=== PATIENT | male | born 1965 | race Caucasian/White ===

== ENCOUNTER 2023-06-13 10:27 | Emergency (ER) | payer BC, SELFPAY ==
--- NOTE | ~2023-06-13 | XR_ITS ---
EXAMINATION: XR chest 2V DATE: 06/13/2023 11:18 INDICATION: Cough. Left flank pain. TECHNIQUE: Frontal and lateral views of the chest were obtained. COMPARISON: None. FINDINGS: There is no pneumonia, pleural effusion, or pneumothorax. The heart size is normal. IMPRESSION: 1. No acute cardiopulmonary disease. Reviewed, dictated and finalized at location A. [employer] TRAINING REPRESENTATIVE
[2023-06-13 10:49] VITALS: BP 163/96; PULSE 102; RESP 18; TEMP 36.7; O2SAT 96
[2023-06-13] MEDS: ALBUTEROL SULFATE (*SP) AEROSOL 1 PUFF 2 PUFF INHALATION (11:38)
[2023-06-13] MEDS: ALBUTEROL SULFATE (*SP) INHALER 1 PUFF (11:38)
[2023-06-13 11:47] LABS: Basophils Absolute Auto 0.1 K/mm3 (0.0-0.1); Basophils Percent Auto 1.1 % (0.2-1.2); Eosinophils Absolute Auto 0.1 K/mm3 (0-0.3); Eosinophils Percent Auto 1.6 % (0-4.4); Hematocrit 49.6 % (42.0-52.0); Hemoglobin 16.5 g/dL (14.0-18.0); Immature Granulocyte Absolute 0.04 K/mm3 (0.00-0.031); Immature Granulocyte Percent A 0.5 % (0-0.5); Lymphocytes Absolute Auto 2.09 K/mm3 (0.9-3.2); Lymphocytes Percent Auto 25.8 % (18.3-44.2); Mean Corpuscular HGB Conc 33.3 g/dl (32-36); Mean Corpuscular Hemoglobin 29.9 pg (26-34); Mean Corpuscular Volume 89.9 fl (80-100); Mean Platelet Volume 10.6 fl (7.4-10.4); Monocytes Absolute Auto 0.7 K/mm3 (0.1-0.6); Monocytes Percent Auto 9.1 % (2.6-8.5); Neutrophils Percent Auto 61.9 % (45.5-73.1); Platelet Count Result 219 k/mm3 (150-375); Red Blood Count 5.52 M/mm3 (4.6-6.20); Red Cell Distribution Width 13.6 % (11.5-14.5); White Blood Count 8.1 K/mm3 (4.5-10.0)
[2023-06-13 11:58] LABS: Anion Gap 10 mmol/L (8-16); Blood Urea Nitrogen 19 mg/dL (9-20); Calcium 9.2 mg/dL (8.4-10.2); Carbon Dioxide 24 mmol/L (22-30); Chloride 104 mmol/L (98-107); Estimated Glomerular Filt Rate > 60; Glucose 118 mg/dL (65-110); Potassium 3.8 mmol/L (3.4-5.0); Sodium 138 mmol/L (137-145)
[2023-06-13 12:03] LABS: D Dimer 0.37 ug/mL (<0.48)
--- NOTE | 2023-06-13 12:48 | ECG_ITS ---
Measurements Intervals Allison Rate: 74 P: 41 GA: 176 QRS: 18 QRSD: 95 T: 32 QT: 355 QTc: 394 Interpretive Statements SINUS RHYTHM NORMAL ELECTROCARDIOGRAM NO PREVIOUS ECG AVAILABLE FOR COMPARISON Electronically Signed On 06-13-2023 13:42:33 [employer] by Sukhjinder Jacobson M.D.
[2023-06-13 13:33] VITALS: BP 142/84; PULSE 80; RESP 16; O2SAT 97
--- NOTE | 2023-06-13 17:49 | ED.URI ---
HPI - URI/Sore Throat General Chief Complaint: Upper Respiratory Infection Stated Complaint: Left Rib Pain with Cough Time Seen by Provider: 06/13/23 11:01 History of Present Illness HPI Narrative: Patient has history of smoking, he had been dealing with a cough for the last 2 weeks, which has been slowly improving, however he is still having some pain to the left ribs with deep inspiration. No chest pain. Related Data Allergies Allergy/AdvReac Type Severity Reaction Status Date / Time Penicillins Allergy Unknown Verified 06/13/23 11:00 UNKNOWN BP MED Allergy Unknown Uncoded 06/13/23 11:00 Review of Systems Review of Systems: All systems reviewed & are unremarkable except as noted in HPI and below [facility] Social History Social History (Updated 08/09/22 @ 15:09 by Nini Gibbs RT(R)) Smoking packs per day: 1 Smoking cigarettes per day: 20.0 Smoking status: Current every day smoker Tobacco type: cigarettes Alcohol intake: never Substance use: never Substance use type: does not use Living arrangements: alone Occupation/Education: occupation Additional occupation/education comments: [employer] Gender identity (if verbalized by the patient): Male Agree to blood products: Yes Exam Narrative: EXAMINATION OF ORGAN SYSTEMS/BODY AREAS: Constitutional: Vital signs per nursing GENERAL:[No acute distress, non-toxic appearing.] HEAD: Normal with no signs of head trauma. EYES: EOMI, conjunctiva normal ENT: Hearing grossly intact LUNGS: Nonlabored breathing. Slightly diminished lung sounds with prolonged end expiratory phase HEART: [Regular rate and rhythm] ABD: [Soft], [nontender to palpation] EXT: Normal range of motion SKIN: [No rashes or lesions.] NEURO: [Alert and oriented x 3. No gross focal sensory or strength deficits.] PSYCH: Normal affect Course Vital Signs Vital signs: Vital Signs Temperature 98.1 F 06/13/23 10:49 Pulse Rate 102 H 06/13/23 10:49 Respiratory Rate 18 06/13/23 10:49 Blood Pressure 163/96 H 06/13/23 10:49 Pulse Oximetry 96 06/13/23 10:49 Oxygen Delivery Room Air 06/13/23 10:49 Temperature 98.1 F 06/13/23 10:49 Pulse Rate 80 06/13/23 13:33 Respiratory Rate 16 06/13/23 13:33 Blood Pressure 142/84 H 06/13/23 13:33 Pulse Oximetry 97 06/13/23 13:33 Oxygen Delivery Room Air 06/13/23 11:43 MDM - URI/Sore Throat MDM Narrative Medical decision making narrative: ED COURSE AND MEDICAL DECISION MAKING: This 57M year old patient presents with left side rib pain on inspiration after having cough. No labored respirations but prolonged end expiratory phase Patient is treated symptomatically with albuterol. I will rule out PE, pneumonia, ACS. Chest x-ray negative for any obvious consolidation or effusion on my own interpretation, EKG - 12-Lead: Performed at 1312. Interpreted by me. [Sinus rhythm]. Rate 74. [Normal] axis. NM-interval [normal]. QRS duration [normal]. QTc [normal]. [No ST segment elevation or depression]. [T-wave normal]. Impression: No EKG evidence of acute ischemia or dysrhythmia. Labs within acceptable limits, including negative D-dimer. On reevaluation, he is improved, I do suspect acute bronchitis. I have counseled him on smoking cessation. He is discharged home in stable condition with expectant management. Return precautions were provided. Procedures: Pulse oximetry interpretation - not hypoxic. Review of medical records. Lab Data 06/13/23 11:40 06/13/23 11:40 Labs: Lab Results 06/13/23 Range/Units 11:40 WBC 8.1 (4.5-10.0) K/mm3 RBC 5.52 (4.6-6.20) M/mm3 Hgb 16.5 (14.0-18.0) g/dL Hct 49.6 (42.0-52.0) % MCV 89.9 (80-100) fl MCH 29.9 (26-34) pg MCHC 33.3 (32-36) g/dl RDW 13.6 (11.5-14.5) % Plt Count 219 (150-375) k/mm3 MPV 10.6 H (7.4-10.4) fl Immature Gran % (Auto) 0.5 (0-0.5) % Neut % (Auto) 61.9 (45.5-73.1) % Lymph % (A
== END 2023-06-13 13:34 | disposition home or self-care (01) ==
PROVIDERS: Emergency Provider Emergency Medicine; PCP Physician Assistant Medical
DX: J40 Bronchitis, not specified as acute or chronic (principal); R06.9 Unspecified abnormalities of breathing; F17.210 Nicotine dependence, cigarettes, uncomplicated
CPT/HCPCS: 36415; 71046; 80048; 85025; 85380; 93005; 94664; 99283; A9270